=== PATIENT | female | born 2000 | race Caucasian/White ===

== ENCOUNTER 2019-03-28 16:49 | Emergency (ER) | payer BC ==
[2019-03-28 17:48] VITALS: BP 106/65
[2019-03-28] MEDS ORDERED: Acetaminophen TAB* 325 MG PO ONE (18:09)
[2019-03-28] MEDS ORDERED: Albuterol 2.5 MG/3 ML NEB.SOL* (0.083%) INH ONE (18:09)
[2019-03-28 18:28] LABS: Influenza A Molecular NEGATIVE (Negative); Influenza B Molecular NEGATIVE (Negative)
[2019-03-28] MEDS ORDERED: Albuterol HFA INHALER* 8 gm MDI INH ONE (19:05)
[2019-03-28] MEDS ORDERED: DOXYcycline CAP(*) 100 MG PO ONE ×2 (19:05→19:06)
--- NOTE | 2019-03-28 19:10 | UC ---
Respiratory Complaint HPI - HPI Summary HPI Summary: 18-year-old female comes in with chief complaint of cough chest congestion fevers chills shortness of breath wheezing bodyaches. Patient's had upper respiratory tract infection symptoms for several weeks. 2 days ago started feeling a lot worse with bodyaches fevers chest congestion and wheezing. Patient feel short of breath with any kind of activity. No history of asthma. The patient's also feeling very fatigued the last couple of days. - History of Current Complaint Chief Complaint: UCRespiratory Stated Complaint: HEADACHE/CHILLS,VOMITING/COUGH/ACHY Time Seen by Provider: 03/28/19 18:00 Hx Last Menstrual Period: 03/21/19 Pain Intensity: 10 - Allergies/Home Medications Allergies/Adverse Reactions: Allergies Allergy/AdvReac Type Severity Reaction Status Date / Time No Known Allergies Allergy Verified 03/28/19 17:44 PMH/Surg Hx/FS Hx/Imm Hx Previously Healthy: Yes - Surgical History Surgical History: Yes Surgery Procedure, Year, and Place: Tonsils - Family History Known Family History: Positive: Non-Contributory - Social History Alcohol Use: Occasionally Substance Use Type: None Smoking Status (MU): Never Smoked Tobacco Review of Systems All Other Systems Reviewed And Are Negative: Yes Constitutional: Positive: Fever, Chills, Fatigue, Other - SEE HPI Skin: Positive: Negative Eyes: Positive: Negative ENT: Positive: Sore Throat, Nasal Discharge, Sinus Congestion Respiratory: Positive: Shortness Of Breath, Cough, Other - SEE HPI Cardiovascular: Positive: Negative Gastrointestinal: Positive: Negative Motor: Positive: Negative Neurovascular: Positive: Negative Musculoskeletal: Positive: Myalgia Neurological: Positive: Negative Psychological: Positive: Negative Is Patient Immunocompromised?: No Physical Exam Triage Information Reviewed: Yes Appearance: No Pain Distress, Well-Nourished, Ill-Appearing - MILD Vital Signs: Initial Vital Signs Temp 100.5 F 03/28/19 17:44 Pulse 100 03/28/19 17:44 Resp 16 03/28/19 17:44 BP 106/65 03/28/19 17:44 Pulse Ox 99 03/28/19 17:44 Vital Signs Reviewed: Yes Eye Exam: Normal Eyes: Positive: Conjunctiva Clear ENT: Positive: Pharyngeal erythema, Nasal congestion, Nasal drainage, TMs normal Neck: Positive: Supple Respiratory: Positive: No respiratory distress, No accessory muscle use, Rhonchi Cardiovascular: Positive: RRR Musculoskeletal: Positive: Strength Intact, ROM Intact Neurological: Positive: Alert, Muscle Tone Normal Psychological: Positive: Age Appropriate Behavior Skin Exam: Normal Respiratory Course/Dx - Course Course Of Treatment: I see Cas[place] hilar infiltrates on the chest x-ray. Radiologist reading is pending. I discussed this with the patient. Patient does feel improved breathing after the albuterol nebulizer here in clinic. I'm prescribing doxycycline other milligrams by mouth twice a day and also gave the patient albuterol inhaler here in clinic. Flu was negative. Am treating for pneumonia. Due to the fatigue we'll check CBC CMP and Monospot. Patient will also continue symptomatic treatment and follow-up with the [facility]. I let her know if she get worse she needs to get reevaluated in the emergency department. - Differential Dx/Diagnosis Provider Diagnosis: Pneumonia, Bronchospasm Discharge ED - Sign-Out/Discharge Documenting (check all that apply): Patient Departure All imaging exams completed and their final reports reviewed: No - Discharge Plan Condition: Stable Disposition: HOME Prescriptions: DOXYcycline CAP(*) [DOXYcycline 100MG CAP(*)] 100 mg PO BID #18 cap Patient Education Materials: Community Acquired Pneumonia (ED), Bronchospasm ( ED) Referrals: [facility] [Outside] [facility] [place] [facility] REFERRAL [Outside] Additional Instructions: FOLLOW UP WITH YOUR STUDENT [facility]ICE. GET REEVALUATED SOONER IF NOT IMPROVING OR GO TO THE EMERGENCY DEPARTMENT IF WORSE; SHORTNESS OF BREATH, YOU FEEL ILL OR ANY QUESTIONS OR CONCERNS. The final radiologist reading for your chest x-ray will occur tomorrow March 29, 2019. If the radiologist's interprets the chest x-ray differently than the provider today, we will call you with the final reading. You have a CBC, CMP and Monospot blood work pending. We will call you with any abnormal results. If you have not heard from us, feel free to call later tomorrow or the next day for final results. - Billing Disposition and Condition Condition: STABLE Disposition: Home
[2019-03-29 11:00] LABS: ABS Neutrophils 8.5 10^3/ul (1.5-7.7); Eosinophil % 0.4 %; Hematocrit 35 % (35-47); Lymphocyte % 9.8 %; Mean Corpuscular HGB Conc 34 g/dL (31-36); Mean Corpuscular Hemoglobin 29 pg (27-31); Mean Corpuscular Volume 86 fL (80-97); Mean Platelet Volume 8.9 fL (7.4-10.4); Platelet Count 215 10^3/uL (150-450); Red Cell Distribution Width 14 % (10-15); White Blood Count 10.6 10^3/uL (3.5-10.8)
[2019-03-29 11:10] LABS: Albumin 4.1 g/dL (3.2-5.2); Calcium 8.7 mg/dL (8.6-10.3); Potassium 4.3 mmol/L (3.5-5.0); Total Bilirubin 0.6 mg/dL (0.2-1.0)
[2019-03-29 11:16] LABS: Albumin/Globulin Ratio 1.5 (1-3); BUN/Creatinine Ratio 11.4 (8-20); EGFR African American 129.1 (>60); EGFR Non-African American 106.7 (>60); Globulin 2.8 g/dL (2-4); Total Protein 6.9 g/dL (6.4-8.9)
--- NOTE | 2019-03-29 12:35 | ED ---
Progress - Progress Note Progress Note: final read reviewed: Perihilar infiltrate. Course/Dx - Diagnoses Provider Diagnoses: Pneumonia, Bronchospasm Discharge ED - Sign-Out/Discharge Documenting (check all that apply): Patient Departure All imaging exams completed and their final reports reviewed: Yes - Discharge Plan Condition: Stable Disposition: HOME Prescriptions: DOXYcycline CAP(*) [DOXYcycline 100MG CAP(*)] 100 mg PO BID #18 cap Patient Education Materials: Community Acquired Pneumonia (ED), Bronchospasm ( ED) Referrals: [facility] [place] [facility] REFERRAL [Outside] [facility] [Outside] Additional Instructions: FOLLOW UP WITH YOUR STUDENT HEALTH SERVICE. GET REEVALUATED SOONER IF NOT IMPROVING OR GO TO THE EMERGENCY DEPARTMENT IF WORSE; SHORTNESS OF BREATH, YOU FEEL ILL OR ANY QUESTIONS OR CONCERNS. The final radiologist reading for your chest x-ray will occur tomorrow March 29, 2019. If the radiologist's interprets the chest x-ray differently than the provider today, we will call you with the final reading. You have a CBC, CMP and Monospot blood work pending. We will call you with any abnormal results. If you have not heard from us, feel free to call later tomorrow or the next day for final results. - Billing Disposition and Condition Condition: STABLE Disposition: Home
[2019-03-30 12:01] LABS: EBV Capsid Ag IgG Ab Positive (Negative); EBV Capsid Ag IgM Ab Negative (Negative); Epstein-Barr Nuclear Antigen Positive (Negative)
--- NOTE | 2019-03-31 10:24 | UC ---
- Progress Note Progress Note: EBV: + IgG neg IgM + ag previous infection, not acute no change [facility] Course/Dx - Diagnoses Provider Diagnoses: Pneumonia, Bronchospasm Discharge ED - Sign-Out/Discharge Documenting (check all that apply): Post-Discharge Follow Up All imaging exams completed and their final reports reviewed: Yes - Discharge Plan Condition: Stable Disposition: HOME Prescriptions: DOXYcycline CAP(*) [DOXYcycline 100MG CAP(*)] 100 mg PO BID #18 cap Patient Education Materials: Community Acquired Pneumonia (ED), Bronchospasm ( ED) Referrals: [facility] [place] [facility] REFERRAL [Outside] [facility] [Outside] Additional Instructions: FOLLOW UP WITH YOUR STUDENT HEALTH SERVICE. GET REEVALUATED SOONER IF NOT IMPROVING OR GO TO THE EMERGENCY DEPARTMENT IF WORSE; SHORTNESS OF BREATH, YOU FEEL ILL OR ANY QUESTIONS OR CONCERNS. The final radiologist reading for your chest x-ray will occur tomorrow March 29, 2019. If the radiologist's interprets the chest x-ray differently than the provider today, we will call you with the final reading. You have a CBC, CMP and Monospot blood work pending. We will call you with any abnormal results. If you have not heard from us, feel free to call later tomorrow or the next day for final results. - Billing Disposition and Condition Condition: STABLE Disposition: Home
== END 2019-03-28 19:32 | disposition home or self-care (01) ==
LOC: UCCORT 16:49
DX: J18.9 Pneumonia, unspecified organism (principal); J98.01 Acute bronchospasm; J02.9 Acute pharyngitis, unspecified; M79.10 Myalgia, unspecified site; J34.89 Other specified disorders of nose and nasal sinuses
CPT/HCPCS: 36415; 71046; 80053; 85025; 86308; 86664; 86665; 99203; A9270-GY; G0463